=== PATIENT | male | born 1955 | race Caucasian/White ===

== ENCOUNTER 2019-04-04 03:03 | Inpatient (IN) | payer BC ==
[2019-04-04 03:46] LABS: APPEARANCE,URINE CLEAR; BILIRUBIN,URINE NEGATIVE (NEGATIVE); COLOR,URINE YELLOW; GLUCOSE, URINE NEGATIVE (NEGATIVE); KETONES,URINE NEGATIVE (NEGATIVE); LEUKOCYTE ESTERASE,URINE NEGATIVE (NEGATIVE); NITRITE,URINE NEGATIVE (NEGATIVE); PROTEIN,URINE NEGATIVE (NEGATIVE); URINE SPECIFIC GRAVITY 1.024
[2019-04-04 04:17] LABS: ABSOLUTE BASOPHILS # (AUTO) 0.1 10^3/uL (0.0-0.2); ABSOLUTE EOSINOPHILS # (AUTO) 0.2 10^3/uL (0.0-0.6); ABSOLUTE LYMPHOCYTES (AUTO) 1.5 10^3/uL (0.5-4.7); ABSOLUTE MONOCYTES (AUTO) 1.7 10^3/uL (0.1-1.4); ABSOLUTE NEUT (AUTO) 15.9 10^3/uL (1.7-8.2); BASOPHILS % (AUTO) 0.3 % (0-2); EOSINOPHILS % (AUTO) 1.1 % (0-6); HEMATOCRIT 43.9 % (37.9-51.0); HEMOGLOBIN 15.1 g/dL (13.5-17.0); LYMPHOCYTES % (AUTO) 7.6 % (13-45); MEAN CORPUSCULAR HEMOGLOBIN 30.5 pg (27.0-33.4); MEAN CORPUSCULAR HGB CONC 34.4 g/dL (32.0-36.0); MEAN CORPUSCULAR VOLUME 89 fl (80-97); MONOCYTES % (AUTO) 8.8 % (3-13); PLATELET COUNT 206 10^3/uL (150-450); RED BLOOD COUNT 4.95 10^6/uL (4.35-5.55); RED CELL DISTRIBUTION WIDTH 13.6 % (11.5-14.0); SEGMENTED NEUTROPHILS % (AUTO) 82.2 % (42-78); TOTAL CELLS COUNTED % (AUTO) 100 %; WHITE BLOOD COUNT 19.3 10^3/uL (4.0-10.5)
[2019-04-04 04:35] LABS: ALKALINE PHOSPHATASE 80 U/L (38-126); ANION GAP 9 (5-19); ASPARTATE AMINO TRANSFERASE 19 U/L (17-59); BILIRUBIN,DIRECT 0.1 mg/dL (0.0-0.4); BLOOD UREA NITROGEN 20 mg/dL (7-20); CALCIUM 9.1 mg/dL (8.4-10.2); CARBON DIOXIDE 25 mmol/L (22-30); CHLORIDE 103 mmol/L (98-107); GLUCOSE 114 mg/dL (75-110); POTASSIUM 4.3 mmol/L (3.6-5.0); TOTAL PROTEIN 7.4 g/dL (6.3-8.2)
--- NOTE | 2019-04-04 04:54 | ER Document Report ---
ED General - General Chief Complaint: Abdominal Pain Stated Complaint: ABDOMINAL PAIN Time Seen by Provider: 04/04/19 04:43 Primary Care Provider: STEPHAN HANEY MD [Primary Care Provider] - Follow up as needed - Related Data Allergies/Adverse Reactions: oxycodone Adverse Reaction (Verified 04/04/19 05:10) Past Medical History - Social History Smoking Status: Unknown if Ever Smoked Family History: Reviewed & Not Pertinent Patient has suicidal ideation: No Patient has homicidal ideation: No - Past Medical History Cardiac Medical History: Reports: Hx Hypertension Physical Exam - Vital signs Vitals: Temp Pulse Resp BP Pulse Ox 98.4 F 97 18 142/71 H 96 04/04/19 03:13 04/04/19 03:13 04/04/19 03:13 04/04/19 03:13 04/04/19 03:13 - Notes Notes: Patient presents emergency department complaint right lower quadrant abdominal pain is been gone for the past 3 days. Pain is constant but will occasionally radiate around the stomach brief period of time. He denies any fevers nausea vomiting diarrhea or dysuria and has had normal bowel movement. Appetite is been good and eating does not change the pain. Previous history of similar type of pain. Trauma falls or heavy lifting. He has no previous history of hernia or kidney stone. He denies any swelling in the groin area with straining is occasionally the pain will go around to his right side also His medical history significant for hypertension he has no diabetes or heart disease. Social history does not smoke or drink at all Review of systems pertinent positives and negatives in HPI otherwise all the systems were reviewed and acutely negative PHYSICIAN EXAM -vital signs are noted triage note and note from triage reviewed GENERAL: Well-appearing, well-nourished and in ___no acute distress___ HEAD: Atraumatic, normocephalic. EYES: Pupils equal round and reactive to light, extraocular movements intact, sclera anicteric, conjunctiva are normal. ENT: nares patent, oropharynx clear without exudates. Moist mucous membranes. NECK: supple without lymphadenopathy LUNGS: Breath sounds clear to auscultation bilaterally and equal. No wheezes rales or rhonchi. HEART: Regular rate and rhythm without murmurs ABDOMEN: Soft, small umbilical hernia that is nontender incarcerated. He is got significant localized tenderness in the right lower quadrant with percussion tenderness and pain with abduction of the hips. There is no pain referred from the left side. Upper abdomen is nontender. There is no pain with abduction of the hips. H EXTREMITIES: No deformity, no edema. NEUROLOGICAL: No focal neurological deficits. Moves all extremities spontaneously and on command. Motor strength is 5/5 in the lower extremities Genitourinary penis is without lesions. The testes are swollen and vertically oriented. He has significant tenderness in the right epididymis there is normal cremasterics reflex. There is no evidence of inguinal hernia PHYSICAL EXAMINATION: GENERAL: Well-appearing, well-nourished and in no acute distress. HEAD: Atraumatic, normocephalic. EYES: Pupils equal round and reactive to light, extraocular movements intact, sclera anicteric, conjunctiva are normal. ENT: nares patent, oropharynx clear without exudates. Moist mucous membranes. NECK: Normal range of motion, supple without lymphadenopathy LUNGS: Breath sounds clear to auscultation bilaterally and equal. No wheezes rales or rhonchi. HEART: Regular rate and rhythm without murmurs ABDOMEN: Soft, nontender, normoactive bowel sounds. No guarding, no rebound. No masses appreciated. EXTREMITIES: Normal range of motion, no pitting or edema. No cyanosis. NEUROLOGICAL: No focal neurological deficits. Moves all extremities spontaneously and on command. PSYCH: Normal mood, normal affect. SKIN: Warm, Dry, normal turgor, no rashes or lesions noted. PSYCH: Normal mood, normal affect. SKIN: Warm, Dry, normal turgor, no rashes or lesions noted. BACK-nontender in the midline is some minimal tenderness in the lower abdomen when he sits up. There is no midline tenderness CVA tenderness or tenderness in the paravertebral area Differential diagnosis includes renal colic or UTI colitis epididymitis Course - Re-evaluation Re-evalutation: 04/04/19 06:04 ED patient was initially given a dose of Dilaudid and was resting more comfortably. Pain returns given a second dose. Discussed the case with general surgery after evaluating the patient because of his localized pain and elevated white count however the story is somewhat confusing since he had 3 to 4-day history. He requested we obtain a CT abdomen and pelvis with oral and IV contrast this was discussed with the patient Plan at this point will be to have Dr. Aguilar follow-up on patient - Vital Signs Vital signs: Temp Pulse Resp BP Pulse Ox 98.4 F 97 10 L 142/67 H 98 04/04/19 03:13 04/04/19 03:13 04/04/19 05:01 04/04/19 05:00 04/04/19 05:01 - Laboratory Result Diagrams: 04/04/19 04:05 04/04/19 04:05 Laboratory results interpreted by me: 04/04/19 04/04/19 04/04/19 03:28 04:05 04:05 WBC 19.3 H Lymph % (Auto) 7.6 L Absolute Neuts (auto) 15.9 H Absolute Monos (auto) 1.7 H Seg Neutrophils % 82.2 H Sodium 136.8 L Glucose 114 H Urine Urobilinogen 4.0 H Discharge - Discharge Clinical Impression: Abdominal pain Disposition: OTHER Referrals: STEPHAN HANEY MD [Primary Care Provider] - Follow up as needed
[2019-04-04] MEDS ORDERED: NORMAL SALINE 1000 ML 1,000 ML IV ONE (04:56)
[2019-04-04] MEDS ORDERED: NORMAL SALINE 500 ML IV ONE (04:56)
[2019-04-04] MEDS ORDERED: ONDANSETRON HCL INJ/PF 4 MG/2 ML SDV IV ONE ×3 (04:58→11:41)
[2019-04-04] MEDS ORDERED: HYDROMORPHONE HCL INJ/PF 2 MG/ML AMPULE IV ONE ×3 (04:59→11:40)
--- NOTE | 2019-04-04 07:21 | RADIOLOGY REPORT (SQ) ---
EXAM DESCRIPTION: US SCROTUM COMPLETED DATE/TME: 04/04/2019 04:57 CLINICAL HISTORY: 64 years Male, Pelvic pain Comparison: None. LIMITATIONS: None. FINDINGS: 2.4 x 2.3 x 1.7 cm left extratesticular mass probably due to a spermatocele/epididymal cyst. 0.4 cm diameter, moderate right-sided varicocele. Small bilateral hydroceles. 4.4-cm right testis, 4.0-cm left testis, epididymides, and scrotal structures appear otherwise unremarkable in size, shape, echotexture, and vascularity. No evidence of testicular mass. No evidence of testicular torsion IMPRESSION: 1. 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 2. 0.4 cm diameter, moderate right-sided varicocele. 3. Small bilateral hydroceles. 4. Normal testes.
[2019-04-04] MEDS ORDERED: PIPERACILLIN/TAZOBACTAM 3.375 GM VIAL IV ONE (09:04)
--- NOTE | 2019-04-04 09:17 | RADIOLOGY REPORT (SQ) ---
EXAM DESCRIPTION: CT ABD/PELVIS WITH IV ORAL COMPLETED DATE/TIME: 04/04/2019 8:54 am REASON FOR STUDY: RLQ Abdominal pain COMPARISON: None. TECHNIQUE: CT scan of the abdomen and pelvis performed using helical scanning technique with dynamic intravenous contrast injection. No oral contrast. Images reviewed with lung, soft tissue, and bone windows. Reconstructed coronal and sagittal MPR images reviewed. Delayed images for evaluation of the urinary system also acquired. All images stored on PACS. All CT scanners at this facility use dose modulation, iterative reconstruction, and/or weight based d osing when appropriate to reduce radiation dose to as low as reasonably achievable (ALARA). [facility]: Dose Right [facility]: CareDose [facility]: Dose Right [facility]: Teradose 4D [facility]: [email or web address] CONTRAST TYPE AND DOSE: contrast/concentration: Isovue 350.00 mg/ml; Total Contrast Delivered: 100.0 ml; Total Saline Delivered: 66.5 ml RENAL FUNCTION: BUN 20, creatinine 0.85 RADIATION DOSE: CT Rad equipment meets quality standard of care and radiation dose reduction techniq ues were employed. CTDIvol: 11.8 - 16.8 mGy. DLP: 1723 mGy-cm.. LIMITATIONS: None. FINDINGS: LOWER CHEST: Minimal dependent atelectasis. LIVER: Normal size. No masses. No dilated ducts. SPLEEN: Normal size. No focal lesions. PANCREAS: No masses. No significant calcifications. No adjacent inflammation or peripancreatic fluid collections. Pancreatic duct not dilated. GALLBLADDER: No identified stones by CT criteria. No inflammatory changes to suggest cholecystitis. ADRENAL GLANDS: Left adrenal gland hyperplasia. RIGHT KIDNEY AND URETER: No solid masses. No significant calcifications. No hydronephrosis or hyd roureter. LEFT KIDNEY AND URETER: No solid masses. No significant calcifications. No hydronephrosis or hydr oureter. AORTA AND VESSELS: No aneurysm. No dissection. Renal arteries, SMA, celiac without stenosis. RETROPERITONEUM: No retroperitoneal adenopathy, hemorrhage or masses. BOWEL AND PERITONEAL CAVITY: Nondilated small bowel with scattered air-fluid levels. Extensive in pl keely frederick changes in the right lower quadrant with free fluid. APPENDIX: Markedly dilated appendix measuring up to 19 mm in diameter. PELVIS: There is a small amount of free fluid in the pelvis. ABDOMINAL WALL: No masses. No hernias. BONES: No significant or acute findings. OTHER: No other significant finding. IMPRESSION: Markedly dilated appendix with fairly extensive inflammatory changes in the right lower quadrant and mid abdomen. Findings are consistent with acute appendicitis. There is a small amount of free fluid in the right lower quadrant and pelvis. COMMENT: This report was called to Dr Belle at09:11 on 04/04/2019. TECHNICAL DOCUMENTATION: JOB ID: [id number] Quality ID # [id number]: Final reports with documentation of one or more dose reduction techniques (e.g., Au tomated exposure control, adjustment of the mA and/or kV according to patient size, use of iterative reconstruction technique) 2010 [employer]- All Rights Reserved Reading location - IP/workstation name: [email or web address]
--- NOTE | 2019-04-04 09:57 | PDOC H&P ---
History of Present Illness Admission Date/PCP: 04/04/19 09:28 STEPHAN HANEY MD Patient complains of: Abdominal pain History of Present Illness: RAVI PRESTON is a 64 year old male in usual state of good health until 4 days ago when he began to experience right lower quadrant abdominal pain. The pain persisted and has dramatically worsened in the last 24 hours along with a sweats but no fever. Some nausea but no emesis. No diarrhea. Patient denies any prior history of this sort of pain. Pain is worsened with certain types of positions. Patient had a colonoscopy about 7 years ago was noted with polyps. No colonoscopy since that time. Patient has no family history of colon cancer. Past Medical History Cardiac Medical History: Reports: Hypertension Past Surgical History Past Surgical History: Reports: None Social History Smoking Status: Never Smoker - However he does smoke cigars Electronic Cigarette use?: No Frequency of Alcohol Use: Occasional Hx Recreational Drug Use: No Hx Prescription Drug Abuse: No Family History Family History: Reviewed & Not Pertinent Parental Family History Reviewed: Yes - Diabetes. Mother with lung cancer. Children Family History Reviewed: Yes Sibling(s) Family History Reviewed.: Yes - Brothers and sisters with heart disease Medication/Allergy Allergies/Adverse Reactions: oxycodone Adverse Reaction (Verified 04/04/19 05:10) Review of Systems All systems: reviewed and no additional remarkable complaints except as stated Constitutional: PRESENT: as per HPI Gastrointestinal: PRESENT: as per HPI Physical Exam Vital Signs: Temp Pulse Resp BP Pulse Ox 99.4 F 97 10 L 132/72 H 95 04/04/19 06:53 04/04/19 03:13 04/04/19 05:01 04/04/19 08:00 04/04/19 08:00 Intake & Output 04/03/19 04/04/19 04/05/19 06:59 06:59 06:59 Intake Total 527 Balance 527 Weight 96.7 kg General appearance: PRESENT: cooperative, mild distress Eye exam: PRESENT: conjunctiva pink Neck exam: PRESENT: other - Supple with no masses and no tenderness Respiratory exam: PRESENT: clear to auscultation miladis Cardiovascular exam: PRESENT: RRR GI/Abdominal exam: PRESENT: other - Diffuse abdominal tenderness more pronounced in the right lower quadrant with guarding and rebound. No palpable hernia Extremities exam: PRESENT: other - No swelling and no tenderness Neurological exam: PRESENT: alert, awake Psychiatric exam: PRESENT: appropriate affect Skin exam: PRESENT: warm Results Laboratory Results: 04/04/19 04:05 04/04/19 04:05 04/04/19 04/04/19 04/04/19 03:28 04:05 04:05 WBC 19.3 H RBC 4.95 Hgb 15.1 Hct 43.9 MCV 89 MCH 30.5 MCHC 34.4 RDW 13.6 Plt Count 206 Seg Neutrophils % 82.2 H Sodium 136.8 L Potassium 4.3 Chloride 103 Carbon Dioxide 25 Anion Gap 9 BUN 20 Creatinine 0.85 Est GFR ( Amer) > 60 Glucose 114 H Calcium 9.1 Total Bilirubin 1.0 AST 19 Alkaline Phosphatase 80 Total Protein 7.4 Albumin 4.0 Lipase 50.7 Urine Color YELLOW Urine Appearance CLEAR Urine pH 5.0 Ur Specific [place] 1.024 Urine Protein NEGATIVE Urine Glucose (UA) NEGATIVE Urine Ketones NEGATIVE Urine Blood NEGATIVE Urine Nitrite NEGATIVE Ur Leukocyte Esterase NEGATIVE Urine WBC (Auto) 1 Urine RBC (Auto) 0 Impressions: Abdomen/Pelvis CT 04/04/19 00:00 IMPRESSION: Markedly dilated appendix with fairly extensive inflammatory nelson ges in the right lower quadrant and mid abdomen. Findings are consistent with acute appendicitis. There is a small amount of free fluid in the right lower quadrant and pelvis. Scrotum Ultrasound 04/04/19 04:57 IMPRESSION: 1. 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 2. 0.4 cm diameter, moderate right-sided varicocele. 3. Small bilateral hydroceles. 4. Normal testes. Assessment & Plan - Diagnosis (1) Appendicitis with peritonitis Is this a current diagnosis for this admission?: Yes Plan: Likely perforated appendicitis. Will start antibiotics. Will take patient to the operating room for laparoscopic appendectomy possible open appendectomy. I have had a long discussion with the patient concerning the risk and benefits of the surgery including risk of stump leak, infection, bleeding, possible colon resection, colostomy possibility, adjacent structure injury, heart lung risks, postoperative abscess. Patient understands and agrees to proceed.
[2019-04-04] MEDS ORDERED: EPHEDRINE SULFATE INJ 50 MG/1 ML AMPULE ONE (12:17)
[2019-04-04] MEDS ORDERED: MIDAZOLAM 2 MG/2 ML INJ ONE (12:17)
[2019-04-04] MEDS ORDERED: KETOROLAC TROMETHAMINE 60 MG/2 ML SDV ONE (12:17)
[2019-04-04] MEDS ORDERED: FENTANYL CITRATE INJ/PF 100 MCG/2 ML AMPUL ONE ×2 (12:17→16:53)
[2019-04-04] MEDS ORDERED: DEXAMETHASONE SOD PHOSPHATE INJ 4 MG/1 ML VIAL ONE (12:18)
[2019-04-04] MEDS ORDERED: PROPOFOL INJ 200 MG/20 ML VIAL IV ONE (12:18)
[2019-04-04] MEDS ORDERED: ONDANSETRON HCL INJ/PF 4 MG/2 ML SDV ONE (12:18)
[2019-04-04] MEDS ORDERED: LIDOCAINE 2% INJ (20 MG/ML) 20 ML MDV ONE (12:19)
[2019-04-04] MEDS ORDERED: LIDOCAINE 1% INJ-PF (10 MG/ML) 30 ML SDV ONE (12:24)
[2019-04-04] MEDS ORDERED: LIDOCAINE 0.5% INJ-PF (5 MG/ML) 50 ML SDV ONE (12:24)
[2019-04-04] MEDS ORDERED: ACETAMINOPHEN 1,000 MG/100 ML RTUPB IV ONE (12:44)
[2019-04-04] MEDS ORDERED: BUPIVACAINE HCL 0.25 % INJ/PF (2.5 MG/1 ML) 30 ML VIAL ONE (12:57)
[2019-04-04] MEDS ORDERED: MORPHINE SULFATE 10 MG/ML INJ IV PRN (14:02)
[2019-04-04] MEDS ORDERED: ONDANSETRON HCL INJ/PF 4 MG/2 ML SDV IV PRN (14:02)
[2019-04-04] MEDS ORDERED: FENTANYL CITRATE INJ/PF 100 MCG/2 ML AMPUL IV PRN ×3 (14:02)
[2019-04-04] MEDS ORDERED: PROMETHAZINE HCL INJ 25 MG/1 ML VIAL IV PRN ×2 (14:02)
[2019-04-04] MEDS ORDERED: MEPERIDINE HCL/PF INJ 25 MG/1 ML DISP.SYRIN IV PRN (14:02)
[2019-04-04] MEDS ORDERED: DIPHENHYDRAMINE HCL 50 MG/ML VIAL IV PRN (14:02)
[2019-04-04] MEDS ORDERED: SUCCINYLCHOLINE CHLORIDE INJ 200 MG/10 ML VIAL ONE (14:13)
[2019-04-04] MEDS ORDERED: NEOSTIGMINE METHYLSULFATE 10 MG/10 ML VIAL ONE (14:13)
[2019-04-04] MEDS ORDERED: GLYCOPYRROLATE 1 MG/5 ML VIAL ONE (14:13)
[2019-04-04] MEDS ORDERED: PHENYLEPHRINE HCL INJ/PF 10 MG/1 ML SDV ONE (14:13)
[2019-04-04] MEDS ORDERED: ROCURONIUM BROMIDE INJ 50 MG/5 ML VIAL IV ONE (14:13)
[2019-04-04] MEDS ORDERED: MORPHINE SULFATE 10 MG/ML INJ ONE (14:18)
--- NOTE | 2019-04-04 14:27 | EKG REPORT ---
SEVERITY:- NORMAL ECG - SINUS RHYTHM : Confirmed by: Mary Waddell MD 04-Apr-2019 14:26:44
--- NOTE | 2019-04-04 16:21 | Operative Report ---
Operative Report DATE OF SURGERY: 04/04/19 PREOPERATIVE DIAGNOSIS: Appendicitis POSTOPERATIVE DIAGNOSIS: Perforated appendicitis OPERATION: Laparoscopy, open right hemicolectomy. SURGEON: [facility] ANESTHESIA: GA TISSUE REMOVED OR ALTERED: Right colon, peritoneal fluid sent for Gram stain and culture COMPLICATIONS: None ESTIMATED BLOOD LOSS: 100 cc INTRAOPERATIVE FINDINGS: Turbid fluid with inflammatory changes throughout the peritoneal cavity, distended inflamed appendix with masslike effect at the appendix cecal region with perforation at the base of the appendix. PROCEDURE: Informed consent was obtained. Patient was brought to the operating room and placed on the operating room table in supine position. After satisfactory induction of general anesthesia patient's abdomen was prepped and draped in the usual sterile fashion. A's supraumbilical midline incision was made dissection carried out through the fascia and the peritoneal cavity was entered without difficulty. Anton trocar was inserted pneumoperitoneum produced with good patient toleration. 5 mm trocar was placed in the right lateral abdomen lateral to the rectus above the level of the umbilicus. Another 5 mm trocar was placed in the left lower abdomen lateral to the rectus below the level of the umbil icus. Patient was placed in a Trendelenburg position with the right side up. Patient had turbid fluid throughout the peritoneal cavity with inflammatory peel seen overlying the bowel in the pelvis and on the right side. Bowel and omentum were adhered to the right pelvis and right abdomen. The bowel and omentum were gently teased off revealing an underlying inflamed appendix, with evidence of p erforation at the cecum. The base of the appendix could not be identified due to the inflammatory changes in this area. This entire region was a mass of inflammation. I did not think that it would be safe to proceed laparoscopically therefore it was converted to an open procedure. The Anton trocar site incision was extended cephalad and inferiorly and a laparotomy was performed. Wound protractor and Bookwalter retractor was used during the case. Palpation revealed mass at the cecum appendix confluence. The cecum was mobilized and it was palpated again but it was impossible to tell whether this was just an inflammatory mass versus a mass in the cecum itself with resultant cecal perforation. Certainly the appendix that was visible was not perforated. The perforation was apparent at the region where I would expect the base of the appendix to be but anatomy was not clear. With this finding I felt that cecal cancer with perforation was certainly in the differential diagnosis, especially with the mass-effect that I felt in this region. Even if it was a appendiceal perforation there would be no way to do an appendectomy safely without taking a significant portion of the cecum. Therefore a right hemicolectomy was performed. The right colon was fully mobilized beyond the hepatic flexure. The right colon mesentery was taken. The ileocolic artery was identified and taken near its origin by clamping dividing and tying. Of note I felt enlarged lymph nodes in the right colon mesentery. There was an enlarged node at the base of the ileocolic artery that was taken along with the specimen. The right colon was divided beyond the the hepatic flexure using a MINDY stapling device. The terminal ileum was divided several centimeters away from the ileocecal junction. The specimen was passed off the table with a suture marking the origin of the ileocolic artery. It was submitted to pathology for gross interpretation. Pathology evaluation demonstrated no evidence of cecal carcinoma. Pathologist's impression was that of appendiceal perforation at the base near the cecal appendiceal junction. Hemostasis appeared excellent. The operative field was copiously irrigated and irrigant aspirated out. Irrigation fluid was clear at the end of the case. The transverse colon end appeared pink and healthy and had excellent triphasic Doppler signals at its mesentery. Bowel continuity was then created creating a [id number] functional end-to-end anastomosis between the terminal ileum and the transverse colon end using a MINDY stapling device. The enterotomies created to introduce the stapling device was closed with a TA stapling device. There was no enteric contamination during the anastomosis. The anastomosis appeared secure. Operative field was irrigated again and irrigant aspirated out. Hemostasis appeared excellent. The mesenteric defect was very wide and the tissue edges did not appear to have much strength and I felt that closing the mesenteric defect may cause more problems than leaving it wide open. Omentum was draped over the anastomosis. Adiel-Howell drain was placed in the right paracolic gutter where the inflammatory mass of the appendix and cecum had been removed. It was brought out through a separate stab incision and sutured in place. Of note the anterior surface of the stomach felt smooth and NG tube position was confirmed. The liver felt smooth with no masses. The colon was filled with stool but no other abnormalities were seen than the above- mentioned abnormality of the cecum. Sponge needle instrument counts were all c orrect. Fascia was closed with running PDS suture. Skin was closed loosely with fredrick and the wound was packed with gauze. Patient tolerated procedure well with no apparent complications and was taken to the recovery area in stable condition.
[2019-04-04] MEDS ORDERED: PHARMACY COMMUNICATION ORDER MC NR (16:30)
[2019-04-04] MEDS ORDERED: FENTANYL CITRATE INJ/PF 100 MCG/2 ML AMPUL IV ONE (17:10)
[2019-04-04] MEDS: PIPERACILLIN SODIUM/TAZOBACTAM 3.375 GM in NORMAL SALINE 100 ML IV SCH (19:08)
--- NOTE | 2019-04-04 20:37 | PDOC PROGRESS REPORT ---
Subjective Progress Note for:: 04/04/19 Subjective:: Feels better than preop. Less abdominal pain. Reason For Visit: PERFORATED APPENDICITIS WITH PERITONITIS Physical Exam Vital Signs: Temp Pulse Resp BP Pulse Ox 98.2 F 83 16 137/78 H 97 04/04/19 18:43 04/04/19 19:27 04/04/19 19:27 04/04/19 19:27 04/04/19 19:27 Intake & Output 04/03/19 04/04/19 04/05/19 06:59 06:59 06:59 Intake Total 527 8048 Output Total 3000 Balance 527 5048 Weight 96.7 kg General appearance: PRESENT: no acute distress, cooperative Respiratory exam: PRESENT: clear to auscultation miladis Cardiovascular exam: PRESENT: RRR GI/Abdominal exam: PRESENT: other - Soft, mildly distended, mild to moderate diffuse abdominal tenderness but much improved from preoperative exam. Drain output is blood-tinged. Results Laboratory Results: 04/04/19 04:05 04/04/19 04:05 04/04/19 04/04/19 04/04/19 03:28 04:05 04:05 WBC 19.3 H RBC 4.95 Hgb 15.1 Hct 43.9 MCV 89 MCH 30.5 MCHC 34.4 RDW 13.6 Plt Count 206 Seg Neutrophils % 82.2 H Sodium 136.8 L Potassium 4.3 Chloride 103 Carbon Dioxide 25 Anion Gap 9 BUN 20 Creatinine 0.85 Est GFR ( Amer) > 60 Glucose 114 H Calcium 9.1 Total Bilirubin 1.0 AST 19 Alkaline Phosphatase 80 Total Protein 7.4 Albumin 4.0 Lipase 50.7 Urine Color YELLOW Urine Appearance CLEAR Urine pH 5.0 Ur Specific [place] 1.024 Urine Protein NEGATIVE Urine Glucose (UA) NEGATIVE Urine Ketones NEGATIVE Urine Blood NEGATIVE Urine Nitrite NEGATIVE Ur Leukocyte Esterase NEGATIVE Urine WBC (Auto) 1 Urine RBC (Auto) 0 Impressions: Abdomen/Pelvis CT 04/04/19 00:00 IMPRESSION: Markedly dilated appendix with fairly extensive inflammatory changes in the right lower quadrant and mid abdomen. Findings are consistent with acute appendicitis. There is a small amount of free fluid in the right lower quadrant and pelvis. Scrotum Ultrasound 04/04/19 04:57 IMPRESSION: 1. 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 2. 0.4 cm diameter, moderate right-sided varicocele. 3. Small bilateral hydroceles. 4. Normal testes. Assessment & Plan - Diagnosis (1) Appendicitis with peritonitis Is this a current diagnosis for this admission?: Yes Plan: Status post right hemicolectomy. Patient looks good postoperatively. Will start ambulation tomorrow. - Time Time Spent with patient: Less than 15 minutes
[2019-04-04] MEDS: MORPHINE SULFATE 10 MG/ML INJ IV PRN (21:32)
[2019-04-04] MEDS: NORMAL SALINE 1000 ML 1,000 ML IV PRN (22:56)
[2019-04-05] MEDS: PIPERACILLIN SODIUM/TAZOBACTAM 3.375 GM in NORMAL SALINE 100 ML IV SCH ×4 (00:37→17:46)
[2019-04-05] MEDS: MORPHINE SULFATE 10 MG/ML INJ IV PRN ×3 (00:37→08:13)
[2019-04-05 05:33] LABS: HEMATOCRIT 38.7 % (37.9-51.0); HEMOGLOBIN 13.2 g/dL (13.5-17.0); MEAN CORPUSCULAR HEMOGLOBIN 30.4 pg (27.0-33.4); MEAN CORPUSCULAR HGB CONC 34.1 g/dL (32.0-36.0); MEAN CORPUSCULAR VOLUME 89 fl (80-97); PLATELET COUNT 193 10^3/uL (150-450); RED BLOOD COUNT 4.34 10^6/uL (4.35-5.55); RED CELL DISTRIBUTION WIDTH 13.6 % (11.5-14.0); WHITE BLOOD COUNT 17.9 10^3/uL (4.0-10.5)
[2019-04-05 06:00] LABS: ANION GAP 8 (5-19); BLOOD UREA NITROGEN 15 mg/dL (7-20); CARBON DIOXIDE 23 mmol/L (22-30); CHLORIDE 103 mmol/L (98-107); GLUCOSE 145 mg/dL (75-110); POTASSIUM 4.2 mmol/L (3.6-5.0)
[2019-04-05] MEDS: NORMAL SALINE 1000 ML 1,000 ML IV PRN ×2 (06:51→13:56)
[2019-04-05] MEDS: ENOXAPARIN SODIUM INJ 40 MG/0.4 ML DISP.SYRIN SUBCUT SCH (10:26)
[2019-04-05] MEDS: ONDANSETRON HCL INJ/PF 4 MG/2 ML SDV IV PRN ×3 (11:50→21:03)
[2019-04-05] MEDS: HYDROMORPHONE HCL INJ/PF 2 MG/ML AMPULE IV PRN ×3 (11:50→20:59)
--- NOTE | 2019-04-05 18:59 | PDOC PROGRESS REPORT ---
Subjective Progress Note for:: 04/05/19 Reason For Visit: PERFORATED APPENDICITIS WITH PERITONITIS Physical Exam Vital Signs: Temp Pulse Resp BP Pulse Ox 99.0 F 88 16 155/73 H 95 04/05/19 15:00 04/05/19 15:00 04/05/19 15:00 04/05/19 15:00 04/05/19 15:00 Intake & Output 04/04/19 04/05/19 04/06/19 06:59 06:59 06:59 Intake Total 527 9227 1230 Output Total 3745 1700 Balance 527 5808 -209 Weight 96.7 kg 96.4 kg Results Laboratory Results: 04/05/19 04:42 04/05/19 04:42 04/05/19 04/05/19 04:42 04:42 WBC 17.9 H RBC 4.34 L Hgb 13.2 L Hct 38.7 MCV 89 MCH 30.4 MCHC 34.1 RDW 13.6 Plt Count 193 Sodium 134.1 L Potassium 4.2 Chloride 103 Carbon Dioxide 23 Anion Gap 8 BUN 15 Creatinine 0.93 Est GFR ( Amer) > 60 Glucose 145 H Calcium 8.0 L Impressions: Abdomen/Pelvis CT 04/04/19 00:00 IMPRESSION: Markedly dilated appendix with fairly extensive inflammatory changes in the right lower quadrant and mid abdomen. Findings are consistent with acute appendicitis. There is a small amount of free fluid in the right lower quadrant and pelvis. Scrotum Ultrasound 04/04/19 04:57 IMPRESSION: 1. 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 2. 0.4 cm diameter, moderate right-sided varicocele. 3. Small bilateral hydroceles. 4. Normal testes. Assessment & Plan - Diagnosis (1) Appendicitis with peritonitis Is this a current diagnosis for this admission?: Yes - Time Time Spent with patient: Less than 15 minutes - Plan Summary Plan Summary: This is a 64-year-old male status post right hemicolectomy for severe, perforated acute appendicitis. The patient is doing reasonably well today. He continues to complain of pain. I will increase his pain medications in hopes of making him more comfortable. I have recommended that the patient get out of bed and sit in a chair today. Continue with intravenous antibiotics. Rodriguez catheter out tomorrow. Okay for ice chips and popsicles. Repeat labs tomorrow.
[2019-04-06] MEDS: PIPERACILLIN SODIUM/TAZOBACTAM 3.375 GM in NORMAL SALINE 100 ML IV SCH ×5 (00:56→23:53)
[2019-04-06] MEDS: HYDROMORPHONE HCL INJ/PF 2 MG/ML AMPULE IV PRN ×5 (01:00→22:00)
[2019-04-06 06:28] LABS: HEMATOCRIT 35.4 % (37.9-51.0); HEMOGLOBIN 12.1 g/dL (13.5-17.0); MEAN CORPUSCULAR HEMOGLOBIN 30.2 pg (27.0-33.4); MEAN CORPUSCULAR HGB CONC 34.3 g/dL (32.0-36.0); MEAN CORPUSCULAR VOLUME 88 fl (80-97); PLATELET COUNT 203 10^3/uL (150-450); RED BLOOD COUNT 4.02 10^6/uL (4.35-5.55); RED CELL DISTRIBUTION WIDTH 13.6 % (11.5-14.0); WHITE BLOOD COUNT 18.7 10^3/uL (4.0-10.5)
[2019-04-06 06:47] LABS: ANION GAP 6 (5-19); BLOOD UREA NITROGEN 16 mg/dL (7-20); CALCIUM 8.1 mg/dL (8.4-10.2); CARBON DIOXIDE 27 mmol/L (22-30); CHLORIDE 104 mmol/L (98-107); GLUCOSE 113 mg/dL (75-110); POTASSIUM 4.1 mmol/L (3.6-5.0)
[2019-04-06 06:49] LABS: ABSOLUTE LYMPHOCYTES# (MANUAL) 1.5 10^3/uL (0.5-4.7); ABSOLUTE MONOCYTES # (MANUAL) 1.5 10^3/uL (0.1-1.4); BAND NEUTROPHILS % (MANUAL) 1 % (3-5); BASOPHILS % (MANUAL) 0 % (0-2); EOSINOPHILS % (MANUAL) 0 % (0-6); LYMPHOCYTES % (MANUAL) 8 % (13-45); MONOCYTES % (MANUAL) 8 % (3-13); SEGMENTED NEUTROPHILS % (MAN) 83 % (42-78); TOTAL CELLS COUNTED 100
[2019-04-06 06:50] LABS: TOXIC GRANULATION 1+
[2019-04-06 06:51] LABS: BURR CELLS SLIGHT; OVALOCYTES SLIGHT; PLATELET COMMENT ADEQUATE; POIKILOCYTOSIS SLIGHT
[2019-04-06] MEDS: ONDANSETRON HCL INJ/PF 4 MG/2 ML SDV IV PRN (07:46)
[2019-04-06] MEDS: NORMAL SALINE 1000 ML 1,000 ML IV PRN ×2 (07:47→14:44)
[2019-04-06] MEDS: ENOXAPARIN SODIUM INJ 40 MG/0.4 ML DISP.SYRIN SUBCUT SCH (09:56)
--- NOTE | 2019-04-06 10:16 | PDOC PROGRESS REPORT ---
Subjective Progress Note for:: 04/06/19 Subjective:: Had some abdominal pain earlier but feels better now. Ambulating some but not as much as we would like. Reason For Visit: PERFORATED APPENDICITIS WITH PERITONITIS Physical Exam Vital Signs: Temp Pulse Resp BP Pulse Ox 98.4 F 95 16 139/77 H 93 04/06/19 08:05 04/06/19 08:05 04/06/19 08:05 04/06/19 08:05 04/06/19 08:05 Intake & Output 04/05/19 04/06/19 04/07/19 06:59 06:59 06:59 Intake Total 9273 2530 Output Total 3745 3290 20 Balance 5528 -760 -20 Weight 96.4 kg 97.2 kg General appearance: PRESENT: no acute distress, cooperative Respiratory exam: PRESENT: rhonchi Cardiovascular exam: PRESENT: RRR GI/Abdominal exam: PRESENT: other - Abdomen is very soft and only mildly distended with mild diffuse abdominal tenderness but no peritoneal signs. Drain output is slightly turbid. NG output is bile stained. Lower pole of the wound has some subtle erythema. Therefore the lower fredrick were removed and the wound was open revealing small collection of blood inferiorly but no active bleeding. The hematoma was evacuated and the wound was packed. Results Laboratory Results: 04/06/19 06:03 04/06/19 06:03 04/06/19 04/06/19 06:03 06:03 WBC 18.7 H RBC 4.02 L Hgb 12.1 L Hct 35.4 L MCV 88 MCH 30.2 MCHC 34.3 RDW 13.6 Plt Count 203 Seg Neutrophils % Not Reportable Sodium 137.4 Potassium 4.1 Chloride 104 Carbon Dioxide 27 Anion Gap 6 BUN 16 Creatinine 0.87 Est GFR ( Amer) > 60 Glucose 113 H Calcium 8.1 L Impressions: Abdomen/Pelvis CT 04/04/19 00:00 IMPRESSION: Markedly dilated appendix with fairly extensive inflammatory changes in the right lower quadrant and mid abdomen. Findings are consistent with acute appendicitis. There is a small amount of free fluid in the right lower quadrant and pelvis. Scrotum Ultrasound 04/04/19 04:57 IMPRESSION: 1. 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 2. 0.4 cm diameter, moderate right-sided varicocele. 3. Small bilateral hydroceles. 4. Normal testes. Assessment & Plan - Diagnosis (1) Appendicitis with peritonitis Is this a current diagnosis for this admission?: Yes Plan: Still with a postoperative ileus. Will try to get the patient up out of bed more. Incentive spirometry. Patient with hematoma at the lower portion of the wound that was evacuated today. Will do wet-to-dry dressing changes. Continue broad-spectrum antibiotic. - Time Time Spent with patient: Less than 15 minutes
[2019-04-07] MEDS: NORMAL SALINE 1000 ML 1,000 ML IV PRN ×3 (06:05→23:19)
[2019-04-07] MEDS: PIPERACILLIN SODIUM/TAZOBACTAM 3.375 GM in NORMAL SALINE 100 ML IV SCH ×4 (06:05→23:19)
[2019-04-07] MEDS: HYDROMORPHONE HCL INJ/PF 2 MG/ML AMPULE IV PRN ×2 (06:10→21:14)
--- NOTE | 2019-04-07 09:28 | PDOC PROGRESS REPORT ---
Subjective Progress Note for:: 04/07/19 Subjective:: Feels okay passing flatus Reason For Visit: PERFORATED APPENDICITIS WITH PERITONITIS Physical Exam Vital Signs: Temp Pulse Resp BP Pulse Ox 97.7 F 76 14 131/80 H 100 04/07/19 07:27 04/07/19 07:27 04/07/19 07:27 04/07/19 07:27 04/07/19 07:27 Intake & Output 04/06/19 04/07/19 04/08/19 06:59 06:59 06:59 Intake Total 2530 2560 100 Output Total 3290 890 Balance -760 1670 100 Weight 97.2 kg General appearance: PRESENT: no acute distress Head exam: PRESENT: normocephalic Eye exam: PRESENT: EOMI Ear exam: PRESENT: normal external ear exam Mouth exam: PRESENT: moist Neck exam: PRESENT: full ROM Respiratory exam: PRESENT: clear to auscultation miladis Cardiovascular exam: PRESENT: RRR GI/Abdominal exam: PRESENT: soft - Wound is clean and dry fredrick intact minimal drainage Rectal exam: PRESENT: deferred Musculoskeletal exam: PRESENT: full ROM Neurological exam: PRESENT: alert, oriented to person, oriented to place, oriented to time, oriented to situation Psychiatric exam: PRESENT: appropriate affect Skin exam: PRESENT: dry Results Laboratory Results: 04/06/19 06:03 04/06/19 06:03 04/04/19 14:20 Abdomen - Specimen From Or Gram Stain - Final 04/04/19 14:20 Abdomen - Specimen From Or Wound Culture - Final Escherichia Coli Klebsiella Pneumoniae Anaerococcus (Peptostrep) Sp. Bacteroides Fragilis Group Clostridium Sp.not Perfringens Impressions: Abdomen/Pelvis CT 04/04/19 00:00 IMPRESSION: Markedly dilated appendix with fairly extensive inflammatory changes in the right lower quadrant and mid abdomen. Findings are consistent with acute appendicitis. There is a small amount of free fluid in the right lower quadrant and pelvis. Scrotum Ultrasound 04/04/19 04:57 IMPRESSION: 1. 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 2. 0.4 cm diameter, moderate right-sided varicocele. 3. Small bilateral hydroceles. 4. Normal testes. Assessment & Plan - Diagnosis (1) Appendicitis with peritonitis Is this a current diagnosis for this admission?: Yes - Time Time Spent with patient: 25-34 minutes - Plan Summary Plan Summary: Status post right hemicolectomy for perforated appendicitis patient doing well now starting to pass flatus NG with minimal output will DC NG today are clear liquid diet
[2019-04-07] MEDS: ENOXAPARIN SODIUM INJ 40 MG/0.4 ML DISP.SYRIN SUBCUT SCH (10:10)
[2019-04-07 16:30] LABS: HEMATOCRIT 34.6 % (37.9-51.0); MEAN CORPUSCULAR HEMOGLOBIN 30.6 pg (27.0-33.4); MEAN CORPUSCULAR HGB CONC 34.7 g/dL (32.0-36.0); MEAN CORPUSCULAR VOLUME 88 fl (80-97); PLATELET COUNT 242 10^3/uL (150-450); RED BLOOD COUNT 3.93 10^6/uL (4.35-5.55); RED CELL DISTRIBUTION WIDTH 13.3 % (11.5-14.0); WHITE BLOOD COUNT 14.5 10^3/uL (4.0-10.5)
[2019-04-08] MEDS: HYDROMORPHONE HCL INJ/PF 2 MG/ML AMPULE IV PRN ×2 (06:01→20:35)
[2019-04-08] MEDS: PIPERACILLIN SODIUM/TAZOBACTAM 3.375 GM in NORMAL SALINE 100 ML IV SCH ×3 (06:02→18:56)
[2019-04-08 07:04] LABS: ANION GAP 7 (5-19); BLOOD UREA NITROGEN 18 mg/dL (7-20); CARBON DIOXIDE 26 mmol/L (22-30); CHLORIDE 104 mmol/L (98-107); GLUCOSE 109 mg/dL (75-110); POTASSIUM 3.7 mmol/L (3.6-5.0)
[2019-04-08] MEDS: ENOXAPARIN SODIUM INJ 40 MG/0.4 ML DISP.SYRIN SUBCUT SCH (10:57)
[2019-04-09] MEDS: NORMAL SALINE 1000 ML 1,000 ML IV PRN ×3 (01:12→18:22)
[2019-04-09] MEDS: PIPERACILLIN SODIUM/TAZOBACTAM 3.375 GM in NORMAL SALINE 100 ML IV SCH ×5 (01:12→23:12)
--- NOTE | 2019-04-09 06:35 | PDOC PROGRESS REPORT ---
Subjective Progress Note for:: 04/09/19 Subjective:: feels better, passing stool Reason For Visit: PERFORATED APPENDICITIS WITH PERITONITIS delayed note for 04/08/19 Physical Exam Vital Signs: Temp Pulse Resp BP Pulse Ox 98.6 F 66 17 149/58 H 95 04/09/19 04:44 04/09/19 04:44 04/09/19 04:44 04/09/19 04:44 04/08/19 23:37 Intake & Output 04/07/19 04/08/19 04/09/19 06:59 06:59 06:59 Intake Total 2560 4702 630 Output Total 148 443 8966 Balance 1670 4567 -465 Weight 97 kg General appearance: PRESENT: no acute distress Head exam: PRESENT: normocephalic Eye exam: PRESENT: EOMI Mouth exam: PRESENT: moist Neck exam: PRESENT: full ROM Respiratory exam: PRESENT: clear to auscultation miladis Cardiovascular exam: PRESENT: RRR Pulses: PRESENT: normal radial pulses, normal femoral pulses GI/Abdominal exam: PRESENT: soft, other - wound clean dry, dressing removed Rectal exam: PRESENT: deferred Musculoskeletal exam: PRESENT: full ROM Neurological exam: PRESENT: alert, awake, oriented to place Psychiatric exam: PRESENT: appropriate affect Skin exam: PRESENT: dry Results Laboratory Results: 04/07/19 16:21 04/08/19 06:34 04/08/19 06:34 Sodium 137.0 Potassium 3.7 Chloride 104 Carbon Dioxide 26 Anion Gap 7 BUN 18 Creatinine 0.76 Est GFR ( Amer) > 60 Glucose 109 Calcium 8.0 L Impressions: Abdomen/Pelvis CT 04/04/19 00:00 IMPRESSION: Markedly dilated appendix with fairly extensive inflammatory changes in the right lower quadrant and mid abdomen. Findings are consistent with acute appendicitis. There is a small amount of free fluid in the right lower quadrant and pelvis. Scrotum Ultrasound 04/04/19 04:57 IMPRESSION: 1. 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 2. 0.4 cm diameter, moderate right-sided varicocele. 3. Small bilateral hydroceles. 4. Normal testes. Assessment & Plan - Diagnosis (1) Appendicitis with peritonitis Is this a current diagnosis for this admission?: Yes - Time Time Spent with patient: 25-34 minutes - Plan Summary Plan Summary: doing well will advance diet home on 04/09/19 or 04/10
[2019-04-09] MEDS: FAMOTIDINE 20 MG TABLET PO SCH ×2 (10:10→21:18)
[2019-04-09] MEDS: ENOXAPARIN SODIUM INJ 40 MG/0.4 ML DISP.SYRIN SUBCUT SCH (10:11)
[2019-04-09] MEDS: HYDROCODONE/ACETAMINOPHEN 10-325 MG TABLET PO PRN ×2 (10:13→21:18)
[2019-04-09] MEDS: KETOROLAC TROMETHAMINE INJ/PF 30 MG/1 ML SDV IV SCH ×2 (13:22→21:18)
--- NOTE | 2019-04-09 20:52 | PDOC PROGRESS REPORT ---
Subjective Progress Note for:: 04/09/19 Reason For Visit: PERFORATED APPENDICITIS WITH PERITONITIS Physical Exam Vital Signs: Temp Pulse Resp BP Pulse Ox 98.7 F 62 15 145/65 H 96 04/09/19 15:25 04/09/19 15:25 04/09/19 15:25 04/09/19 15:25 04/09/19 15:25 Intake & Output 04/08/19 04/09/19 04/10/19 06:59 06:59 06:59 Intake Total 4702 730 3148 Output Total 135 1095 310 Balance 4567 -365 2838 Weight 97 kg Results Laboratory Results: 04/07/19 16:21 04/08/19 06:34 Impressions: Abdomen/Pelvis CT 04/04/19 00:00 IMPRESSION: Markedly dilated appendix with fairly extensive inflammatory changes in the right lower quadrant and mid abdomen. Findings are consistent with acute appendicitis. There is a small amount of free fluid in the right lower quadrant and pelvis. Scrotum Ultrasound 04/04/19 04:57 IMPRESSION: 1. 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 2. 0.4 cm diameter, moderate right-sided varicocele. 3. Small bilateral hydroceles. 4. Normal testes. Assessment & Plan - Diagnosis (1) Appendicitis with peritonitis Is this a current diagnosis for this admission?: Yes - Time Time Spent with patient: Less than 15 minutes - Plan Summary Plan Summary: This is a 64-year-old male status post right hemicolectomy for severe perforated appendicitis. The patient is doing reasonably well today. I will start him on oral pain medications. I will advance his diet. He is having bowel movements. Continue antibiotics for now. Anticipate discharge in the next 24 hours.
[2019-04-09] MEDS: ONDANSETRON HCL INJ/PF 4 MG/2 ML SDV IV PRN (21:24)
[2019-04-10] MEDS: PIPERACILLIN SODIUM/TAZOBACTAM 3.375 GM in NORMAL SALINE 100 ML IV SCH (05:07)
[2019-04-10] MEDS: KETOROLAC TROMETHAMINE INJ/PF 30 MG/1 ML SDV IV SCH (05:07)
[2019-04-10 06:02] LABS: HEMOGLOBIN 11.5 g/dL (13.5-17.0); MEAN CORPUSCULAR HEMOGLOBIN 29.6 pg (27.0-33.4); MEAN CORPUSCULAR VOLUME 87 fl (80-97); PLATELET COUNT 322 10^3/uL (150-450); RED BLOOD COUNT 3.89 10^6/uL (4.35-5.55); RED CELL DISTRIBUTION WIDTH 13.7 % (11.5-14.0); WHITE BLOOD COUNT 14.9 10^3/uL (4.0-10.5)
[2019-04-10 06:46] LABS: ABSOLUTE LYMPHOCYTES# (MANUAL) 2.2 10^3/uL (0.5-4.7); ABSOLUTE MONOCYTES # (MANUAL) 1.8 10^3/uL (0.1-1.4); BASOPHILS % (MANUAL) 0 % (0-2); EOSINOPHILS % (MANUAL) 2 % (0-6); LYMPHOCYTES % (MANUAL) 15 % (13-45); MONOCYTES % (MANUAL) 12 % (3-13); SEGMENTED NEUTROPHILS % (MAN) 71 % (42-78); TOTAL CELLS COUNTED 100
[2019-04-10 06:47] LABS: PLATELET COMMENT ADEQUATE; RBC MORPHOLOGY COMMENT NORMO-CYTIC/CHROMIC
[2019-04-10 08:26] VITALS: BP 138/73
[2019-04-10] MEDS: HYDROCODONE/ACETAMINOPHEN 10-325 MG TABLET PO PRN (09:04)
[2019-04-10] MEDS: FAMOTIDINE 20 MG TABLET PO SCH (09:04)
[2019-04-10] MEDS: ENOXAPARIN SODIUM INJ 40 MG/0.4 ML DISP.SYRIN SUBCUT SCH (10:00)
--- NOTE | 2019-04-10 10:17 | PDOC DISCHARGE SUMMARY ---
General - Admit/Disc Date/PCP Admission Date/Primary Care Provider: 04/04/19 09:28 STEPHAN HANEY MD Discharge Date: 04/10/19 - Discharge Diagnosis Final Diagnosis: Acute perforated appendicitis with peritonitis - Assessment Summary: Patient is a 64-year-old male admitted to the acute care service on April 04, 2019 complaining of abdominal pain nausea. He was evaluated found to have a leukocytosis, and CT scan findings consistent with acute appendicitis, phlegmon, probable perforation. Patient was taken to the operating room by Dr. Antolin Storm on 04/04/2019 where he underwent laparoscopic conversion to open right hemicolectomy for perforated appendicitis. Final pathology report showed same, with no evidence of malignancy. Patient was managed postoperatively with slow advancement of his diet. His drain out to serosanguineous fluid from the right lower quadrant was left in place. The inferior aspect of his stapled wound was left open and packed. Maintained on Zosyn for his hospital stay. He was started on a diet this was advanced and tolerated reasonably well. His pain was managed with p.o. Ida. By the sixth postoperative day he was felt to be ready for discharge home. He and his have been instructed on drain care, drainage recording, and wet-to-dry dressing change to the inferior aspect of his midline incision. Descriptions for Ida, and 7 days of Levaquin provided. - Additional Information Resuscitation Status: Full Code Discharge Diet: As Tolerated Discharge Activity: Activity As Tolerated, Balance Activity w/Rest, No Driving, No Lifting Over 10 Pounds, No Lifting/Push/Pulling, Slowly Increase Activity, No tub bath, Walk Frequently Referrals: [facility] [Provider Group] - 04/14/19 9:45 am Home Medications: Lisinopril [Prinivil 10 mg Tablet] 10 mg PO QHS 04/04/19 Nifedipine [Nifedipine ER] 90 mg PO DAILY 04/04/19 Simvastatin [Zocor 40 mg Tablet] 40 mg PO QHS 04/04/19 History of Present Illiness History of Present Illness: RAVI PRESTON is a 64 year old male Physical Exam Vital Signs: Temp Pulse Resp BP Pulse Ox 98.2 F 52 L 18 138/73 H 99 04/10/19 08:00 04/10/19 08:00 04/10/19 08:00 04/10/19 08:00 04/10/19 08:00 Intake & Output 04/09/19 04/10/19 04/11/19 06:59 06:59 06:59 Intake Total 730 4348 Output Total 1095 189 Balance -365 3698 Weight 97 kg 100 kg Results Laboratory Results: WBC 14.9 10^3/uL (4.0-10.5) H 04/10/19 04:53 RBC 3.89 10^6/uL (4.35-5.55) L 04/10/19 04:53 Hgb 11.5 g/dL (13.5-17.0) L 04/10/19 04:53 Hct 34.0 % (37.9-51.0) L 04/10/19 04:53 MCV 87 fl (80-97) 04/10/19 04:53 MCH 29.6 pg (27.0-33.4) 04/10/19 04:53 MCHC 34.0 g/dL (32.0-36.0) 04/10/19 04:53 RDW 13.7 % (11.5-14.0) 04/10/19 04:53 Plt Count 322 10^3/uL (150-450) 04/10/19 04:53 Lymph % (Auto) Not Reportable 04/10/19 04:53 Levy % (Auto) Not Reportable 04/10/19 04:53 Eos % (Auto) Not Reportable 04/10/19 04:53 Baso % (Auto) Not Reportable 04/10/19 04:53 Absolute Neuts (auto) Not Reportable 04/10/19 04:53 Absolute Lymphs (auto) Not Reportable 04/10/19 04:53 Absolute Monos (auto) Not Reportable 04/10/19 04:53 Absolute Eos (auto) Not Reportable 04/10/19 04:53 Absolute Basos (auto) Not Reportable 04/10/19 04:53 Total Counted 100 04/10/19 04:53 Seg Neutrophils % Not Reportable 04/10/19 04:53 Seg Neuts % (Manual) 71 % (42-78) 04/10/19 04:53 Band Neutrophils % 1 % (3-5) L 04/06/19 06:03 Lymphocytes % (Manual) 15 % (13-45) 04/10/19 04:53 Monocytes % (Manual) 12 % (3-13) 04/10/19 04:53 Eosinophils % (Manual) 2 % (0-6) 04/10/19 04:53 Basophils % (Manual) 0 % (0-2) 04/10/19 04:53 Abs Neuts (Manual) 10.6 10^3/uL (1.7-8.2) H 04/10/19 04:53 Abs Lymphs (Manual) 2.2 10^3/uL (0.5-4.7) 04/10/19 04:53 Abs Monocytes (Manual) 1.8 10^3/uL (0.1-1.4) H 04/10/19 04:53 Absolute Eos (Manual) 0.3 10^3/uL (0.0-0.6) 04/10/19 04:53 Abs Basophils (Manual) 0.0 10^3/uL (0.0-0.2) 04/10/19 04:53 Toxic Granulation 1+ 04/06/19 06:03 Platelet Comment ADEQUATE 04/10/19 04:53 Poikilocytosis SLIGHT 04/06/19 06:03 Ovalocytes SLIGHT 04/06/19 06:03 [place] Cells SLIGHT 04/06/19 06:03 RBC Morph Comment NORMO-CYTIC/CHROMIC 04/10/19 04:53 Sodium 137.0 mmol/L (137-145) 04/08/19 06:34 Potassium 3.7 mmol/L (3.6-5.0) 04/08/19 06:34 Chloride 104 mmol/L (98-107) 04/08/19 06:34 Carbon Dioxide 26 mmol/L (22-30) 04/08/19 06:34 Anion Gap 7 (5-19) 04/08/19 06:34 BUN 18 mg/dL (7-20) 04/08/19 06:34 Creatinine 0.76 mg/dL (0.52-1.25) 04/08/19 06:34 Est GFR ( Amer) > 60 (>60) 04/08/19 06:34 Est GFR (MDRD) Non-Af > 60 (>60) 04/08/19 06:34 Glucose 109 mg/dL (75-110) 04/08/19 06:34 Calcium 8.0 mg/dL (8.4-10.2) L 04/08/19 06:34 Total Bilirubin 1.0 mg/dL (0.2-1.3) 04/04/19 04:05 Direct Bilirubin 0.1 mg/dL (0.0-0.4) 04/04/19 04:05 Neonat Total Bilirubin Not Reportable 04/04/19 04:05 Neonat Direct Bilirubin Not Reportable 04/04/19 04:05 Neonat Indirect Bili Not Reportable 04/04/19 04:05 AST 19 U/L (17-59) 04/04/19 04:05 ALT 18 U/L (<50) 04/04/19 04:05 Alkaline Phosphatase 80 U/L (38-126) 04/04/19 04:05 Total Protein 7.4 g/dL (6.3-8.2) 04/04/19 04:05 Albumin 4.0 g/dL (3.5-5.0) 04/04/19 04:05 Lipase 50.7 U/L (23-300) 04/04/19 04:05 Urine Color YELLOW 04/04/19 03:28 Urine Appearance CLEAR 04/04/19 03:28 Urine pH 5.0 (5.0-9.0) 04/04/19 03:28 Ur Specific [place] 1.024 04/04/19 03:28 Urine Protein NEGATIVE mg/dL (NEGATIVE) 04/04/19 03:28 Urine Glucose (UA) NEGATIVE mg/dL (NEGATIVE) 04/04/19 03:28 Urine Ketones NEGATIVE mg/dL (NEGATIVE) 04/04/19 03:28 Urine Blood NEGATIVE (NEGATIVE) 04/04/19 03:28 Urine Nitrite NEGATIVE (NEGATIVE) 04/04/19 03:28 Urine Bilirubin NEGATIVE (NEGATIVE) 04/04/19 03:28 Urine Urobilinogen 4.0 mg/dL (<2.0) H 04/04/19 03:28 Ur Leukocyte Esterase NEGATIVE (NEGATIVE) 04/04/19 03:28 Urine WBC (Auto) 1 /HPF 04/04/19 03:28 Urine RBC (Auto) 0 /HPF 04/04/19 03:28 U Hyaline Cast (Auto) 1 /LPF 04/04/19 03:28 Urine Mucus (Auto) RARE /LPF 04/04/19 03:28 Urine Ascorbic Acid NEGATIVE (NEGATIVE) 04/04/19 03:28 Impressions: Abdomen/Pelvis CT 04/04/19 00:00 IMPRESSION: Markedly dilated appendix with fairly extensive inflammatory changes in the right lower quadrant and mid abdomen. Findings are consistent with acute appendicitis. There is a small amount of free fluid in the right lower quadrant and pelvis. Scrotum Ultrasound 04/04/19 04:57 IMPRESSION: 1. 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 2. 0.4 cm diameter, moderate right-sided varicocele. 3. Small bilateral hydroceles. 4. Normal testes.
== END 2019-04-10 10:45 | disposition home or self-care (01) | DRG 331 ==
LOC: ER 03:03 → EH 09:28 → 4S 17:55
PROVIDERS: ADMIT Surgery; ATTEND Surgery
PROC: 0DTJ0ZZ Resection of Appendix, Open Approach (ICD-10-PCS; 2019-04-04)
PROC: 0WJG4ZZ Inspection of Peritoneal Cavity, Percutaneous Endoscopic Approach (ICD-10-PCS; 2019-04-04)
PROC: 0DTF0ZZ Resection of Right Large Intestine, Open Approach (ICD-10-PCS; principal; 2019-04-04 13:00)
DX: K35.33 Acute appendicitis with perforation, localized peritonitis, and gangrene, with abscess (principal); F17.290 Nicotine dependence, other tobacco product, uncomplicated; I10 Essential (primary) hypertension; Z53.31 Laparoscopic surgical procedure converted to open procedure; Z88.6 Allergy status to analgesic agent; Z82.49 Family history of ischemic heart disease and other diseases of the circulatory system
CPT/HCPCS: 36415; 74177; 76870; 790; 80048; 80053; 81001; 83690; 85025; 85027; 87070; 87075; 87077; 87186; 87205; 88307; 93005; 93010; 93976; 94799; 96361; 96374; 96375; 96376; 99285; 88329; J0131; J0330; J1100; J1170; J1650; J1885; J2250; J2270; J2370; J2405; J2543; J2704; J2710; J3010; J3490; J7030; J7040; J7050